=== PATIENT | female | born 1940 | race Asian ===

== ENCOUNTER 2016-11-05 14:04 | Inpatient (IN) | payer OTHER ==
[~2016-11-05] VITALS: Ht 154.9 cm; Wt 45.5 kg
[2016-11-05 16:57] VITALS: BP 160/72; RESP 18
[2016-11-05 17:00] VITALS: Ht 154.9 cm; Wt 45.5 kg
[2016-11-05] MEDS ORDERED: NITROGLYCERIN (SL) 0.4 MG TAB SL PRN (18:00)
[2016-11-05] MEDS ORDERED: DOCUSATE SODIUM 100 MG CAP PO PRN (18:00)
[2016-11-05] MEDS ORDERED: ACETAMINOPHEN 325 MG TAB PO PRN (18:00)
[2016-11-05] MEDS ORDERED: NACL 0.9% 3 ML SYG IV SCH (18:00)
[2016-11-05] MEDS ORDERED: HYDROCODONE/APAP (5/325) TAB PO PRN (18:00)
[2016-11-05] MEDS ORDERED: LORAZEPAM 2 MG INJ IV PRN (18:00)
[2016-11-05] MEDS ORDERED: morphine 2 MG INJ IV PRN (18:00)
[2016-11-05] MEDS ORDERED: hydrALAzine 20 MG INJ IV PRN (18:00)
[2016-11-05] MEDS ORDERED: MAGNESIUM HYDROXIDE 30ML CUP PO PRN (18:00)
[2016-11-05] MEDS ORDERED: NA PHOSPHATE/BIPHOS 133 ML ENEMA PR PRN (18:00)
[2016-11-05] MEDS ORDERED: ONDANSETRON 4 MG INJ IV PRN (18:00)
[2016-11-05] MEDS ORDERED: AMLO2.5T78 PO (18:02)
[2016-11-05] MEDS ORDERED: METF1000 PO (18:02)
[2016-11-05] MEDS ORDERED: HYDR12.58 PO (18:03)
[2016-11-05] MEDS ORDERED: ALBUTEROL/IPRATROPIUM (NEB) 3 ML AMP HHN STA (18:08)
[2016-11-05] MEDS ORDERED: GLUCOSE GEL 15 GRAM TUBE PO PRN ×2 (18:30)
[2016-11-05] MEDS ORDERED: GLUCAGON 1 MG INJ IM PRN (18:30)
[2016-11-05] MEDS ORDERED: DEXTROSE 50% 50 ML SYRINGE IV PRN ×2 (18:30)
[2016-11-05] MEDS ORDERED: GLUCOSE GEL 15 GRAM TUBE BUCCAL PRN (18:30)
[2016-11-05 19:29] VITALS: BP 149/65; RESP 20
--- NOTE | 2016-11-05 20:00 | HP ---
DATE OF ADMISSION: 11/05/2016 CHIEF COMPLAINT: Shortness of breath. HISTORY OF PRESENT ILLNESS: This 76-year-old female with past medical history of essential hyperten dorys, type 2 diabetes, who presented to outside hospital today with complaint of sore throat and con gestion. She has been having these symptoms for the last 3 to 4 days. She also had fever. When nadeen took her temperature at home 2 days ago, she was upper 100 degrees. No upper or lower GI bleeding , no headaches or dizziness or loss of consciousness. No diarrhea or constipation, no arthralgias o r myalgias. When she presented to the outside hospital, she had signs of upper respiratory infectio n, and lactic acid was slightly elevated as well. She was diagnosed with sepsis but transferred [facility] here due to insurance purposes. PAST MEDICAL HISTORY: As stated above. ALLERGIES: NO KNOWN DRUG ALLERGIES. MEDICATIONS AT HOME: Include: She takes metformin at home. She takes amlodipine at home. She bridget es hydrochlorothiazide at home. PAST SURGICAL HISTORY: None. SOCIAL HISTORY: Former smoker, quit many, many years ago. FAMILY HISTORY: Noncontributory. PHYSICAL EXAMINATION: VITAL SIGNS: T-max 98.5, pulse 77, respirations 18, blood pressure 160/72, saturating at greater th an 92% on room air. GENERAL: The patient is lying in bed, answering questions appropriately. No acute distress. HEENT: Pupils equal, round, react to light. Extraocular muscles intact. NECK: Supple, no thyromegaly. LUNGS: Slightly distant breath sounds bilaterally. CARDIOVASCULAR: S1, S2 heard. No rubs or gallops. ABDOMEN: Soft, nontender, nondistended. Normal bowel sounds. No rebound or guarding. MUSCULOSKELETAL: No lower extremity bilaterally. NEUROLOGIC: No focal deficits. LABS: Labs were done at the outside hospital. WBC 7.2, hemoglobin 12.8, hematocrit 36.5, platelets 219. Sodium 134, potassium 3.0, chloride 93, CO2 28, BUN 9, creatinine 0.95, glucose of 167. UA w as positive leukocyte esterase and she had UTI. Since her UA was positive, I put her on Levaquin. The glucose was 50. Negative nitrites. The lactic acid over there was 3.2. They did a chest x-ray that just showed atherosclerotic disease of the aorta, otherwise clear lungs. ASSESSMENT AND PLAN: A 76-year-old female coming in with signs of mild sepsis after experiencing so re throat and congestion for the last few days. Source could be secondary to upper respiratory infe ction versus urinary tract infection. 1. Mild sepsis and sore throat. Admit the patient to med/surg floor, put on DuoNeb p.r.n. Check T SH, A1c, lipid panel, IV fluids, trend her lactic acid as well. Broad spectrum antibiotics. Follow up final culture results. Check labs in the morning. 2. Essential hypertension. Continue home calcium channel kierra and hydralazine p.r.n. 3. Type 2 diabetes. Again, check A1c and put her on sliding scale insulin. 4. Gastrointestinal prophylaxis: Proton pump inhibitor. 5. Deep venous thrombosis prophylaxis: Heparin subcutaneous. Also consider PT consult as well. Dictated By: SWAPNIL PUENTE Conf#: [id number] DID#: [id number]
[2016-11-05] MEDS: SOD CHLORIDE 0.45% 1,000 ML IV SCH (20:23)
[2016-11-05] MEDS: LEVOFLOXACIN 750MG/D5W (PMX) 150 ML IVPB SCH (20:33)
[2016-11-05] MEDS: HEPARIN 5,000 UNIT/0.5 ML VIAL SC SCH (21:21)
[2016-11-05] MEDS: INSULIN ASPART [NOVOLOG] 3 ML PEN SC SCH (21:33)
[2016-11-06] MEDS: ACCU-CHEK XX SCH (01:38)
[2016-11-06] MEDS: CEPASTAT LOZENGE MT PRN ×3 (01:58→06:03)
[2016-11-06] MEDS: ALBUTEROL/IPRATROPIUM (NEB) 3 ML AMP HHN PRN ×2 (05:26→22:01)
[2016-11-06] MEDS: PANTOPRAZOLE (EC) 40 MG TAB PO SCH (06:03)
[2016-11-06 06:23] LABS: ADD SCAN DIFF NO
[2016-11-06 06:33] LABS: BASOPHILS % 0.4 % (0.0-2.0); EOSINOPHILS # 0.1 10^3/ul (0.0-0.5); EOSINOPHILS % 1.5 % (0.0-7.0); HEMOGLOBIN 11.6 g/dl (12.0-16.0); LYMPHOCYTES % 52.6 % (15.0-51.0); MEAN CORPUSCULAR HEMOGLOBIN 30.6 pg (29.0-33.0); MEAN CORPUSCULAR HGB CONC 34.1 g/dl (32.0-37.0); MEAN CORPUSCULAR VOLUME 89.7 fl (82.0-101.0); MEAN PLATELET VOLUME 9.1 fl (7.4-10.4); MONOCYTE # 0.7 10^3/ul (0.3-0.9); MONOCYTES % 8.6 % (0.0-11.0); NEUTROPHIL # 2.8 10^3/ul (1.6-7.5); NEUTROPHILS % 36.6 % (39.0-77.0); PLATELET COUNT 194 10^3/UL (140-415); RED BLOOD COUNT 3.79 10^6/ul (4.20-5.40); RED CELL DISTRIBUTION WIDTH 11.8 % (11.5-14.5); WHITE BLOOD COUNT 7.5 10^3/ul (4.8-10.8)
[2016-11-06 06:59] LABS: CALCIUM 9.4 mg/dl (8.4-10.2); CHOL/HDL RATIO 2.6 RATIO; CREATININE 0.68 mg/dl (0.44-1.00); MAGNESIUM 1.5 mg/dl (1.7-2.5); PHOSPHORUS 3.3 mg/dl (2.5-4.9); POTASSIUM 3.2 mmol/L (3.5-5.1)
[2016-11-06 07:22] VITALS: BP 151/58; RESP 18
[2016-11-06 07:22] LABS: THYROID STIMULATING HORMONE 2.53 MIU/L (0.465-4.680)
[2016-11-06] MEDS: AMLODIPINE 5 MG TAB PO SCH (08:29)
[2016-11-06] MEDS: INSULIN ASPART [NOVOLOG] 3 ML PEN SC SCH ×4 (08:31→22:26)
[2016-11-06] MEDS: HEPARIN 5,000 UNIT/0.5 ML VIAL SC SCH ×2 (08:33→20:05)
[2016-11-06] MEDS ORDERED: POTASSIUM CHLORIDE (SR) 20 MEQ TAB PO STA (09:13)
--- NOTE | 2016-11-06 09:27 | PN ---
Date/Time of Note Date/Time of Note DATE: 11/06/16 TIME: 09:19 Assessment/Plan VTE Prophylaxis VTE Prophylaxis Intervention: heparin Lines/Catheters IV [facility] Peripheral IV Assessment/Plan Chief Complaint/Hosp Course ASSESSMENT AND PLAN: 76-year-old female coming in with signs of mild sepsis after experiencing sore throat and congestion for the last few days. Source could be secondary to upper respiratory infection versus urinary tract infection. 1. Mild sepsis and sore throat - slowly improving - continue DuoNeb p.r.n., IV fluids, trend her lactic acid as well. - Broad spectrum antibiotics. - Follow up final culture results. 2. Essential hypertension. Continue home calcium channel kierra and hydralazine p.r.n. 3. Type 2 diabetes- sliding scale insulin. 4. Gastrointestinal prophylaxis: Proton pump inhibitor. 5. Deep venous thrombosis prophylaxis: Heparin subcutaneous. F/u PT consult as well. Problems: Subjective 24 Hr Interval Summary Free Text/Dictation No acute events overnight. Exam/Review of Systems Vital Signs Vitals Vital Signs Date Time Temp Pulse Resp B/P Pulse Ox O2 Delivery O2 Flow Rate FiO2 11/06/16 07:22 99.2 89 18 151/58 100 11/06/16 05:26 21 Intake and Output 11/05/16 11/05/16 11/06/16 15:00 23:00 07:00 Intake Total 150 ml 700 ml Balance 150 ml 700 ml Exam GENERAL: The patient is lying in bed, answering questions appropriately. No acute distress. HEENT: Pupils equal, round, react to light. Extraocular muscles intact. NECK: Supple, no thyromegaly. LUNGS: Slightly distant breath sounds bilaterally. CARDIOVASCULAR: S1, S2 heard. No rubs or gallops. ABDOMEN: Soft, nontender, nondistended. Normal bowel sounds. No rebound or guarding. MUSCULOSKELETAL: No lower extremity bilaterally. NEUROLOGIC: No focal deficits. Results Result Diagram: 11/06/16 0555 11/06/16 0555 Results 24 hrs Laboratory Tests Test 11/05/16 17:08 11/05/16 18:55 11/05/16 21:17 11/06/16 00:30 Bedside Glucose 167 271 H Free Thyroxine 1.21 Lactic Acid Level 1.6 Test 11/06/16 01:37 11/06/16 05:55 11/06/16 08:05 Bedside Glucose 263 H 208 White Blood Count 7.5 Red Blood Count 3.79 L Hemoglobin 11.6 L Hematocrit 34.0 L Mean Corpuscular Volume 89.7 Mean Corpuscular Hemoglobin 30.6 Mean Corpuscular Hemoglobin Concent 34.1 Red Cell Distribution Width 11.8 Platelet Count 194 Mean Platelet Volume 9.1 Neutrophils % 36.6 L Lymphocytes % 52.6 H Monocytes % 8.6 Eosinophils % 1.5 Basophils % 0.4 Nucleated Red Blood Cells % 0.0 Neutrophils # 2.8 Lymphocytes # 4.0 H Monocytes # 0.7 Eosinophils # 0.1 Basophils # 0.0 Nucleated Red Blood Cells # 0.0 Sodium Level 137 Potassium Level 3.2 L Chloride Level 100 Carbon Dioxide Level 27 Anion Gap 13 Blood Urea Nitrogen 12 Creatinine 0.68 Glucose Level 188 Lactic Acid Level 2.9 H Calcium Level 9.4 Phosphorus Level 3.3 Magnesium Level 1.5 L Triglycerides Level 172 H Cholesterol Level 175 LDL Cholesterol, Calculated 76 HDL Cholesterol 65 Cholesterol/HDL Ratio 2.6 Thyroid Stimulating Hormone (TSH) 2.530 Medications Medications Current Medications Ondansetron HCl (Zofran Inj) 4 mg Q6H PRN IV NAUSEA AND/OR VOMITING; Start 05/14 at 18:00 Acetaminophen (Tylenol Tab) 650 mg Q6H PRN PO PAIN LEVEL 1-3 OR FEVER Last administered on 11/06/16 01:50; Admin Dose 650 MG; Start 11/05/16 at 18:00 Acetaminophen/ Hydrocodone Bitart ([place] (5/325)) 1 tab Q6H PRN PO MODERATE PAIN LEVEL 4-6; Start 11/05/16 at 18:00 Morphine Sulfate (morphine) 2 mg Q4H PRN IV SEVERE PAIN LEVEL 7-10; Start 11/05 at 18:00 Docusate Sodium (Colace) 100 mg Q12H PRN PO CONSTIPATION; Start 11/05/16 at 18: 00 Magnesium Hydroxide (Milk Of Mag) 30 ml DAILY PRN PO CONSTIPATION; Start at 18:00 Sodium Biphosphate/ Sodium Phosphate (Fleet Enema) 133 ml DAILY PRN [place] CONSTIPATION; Start 11/05/16 at 18:00 Pantoprazole (Protonix Tab) 40 mg DAILY@06 PO Last administered on 11/06/16 06 :03; Admin Dose 40 MG; Start 11/06/16 at 06:00 Heparin Sodium (Porcine) 5000 unit 5,000 unit Q12 SC Last administered on 08:33; Admin Dose 5,000 UNIT; Start 11/05/16 at 21:00 Sodium Chloride (1/2 NS) 1,000 ml @ 75 mls/hr [id number] IV Last administered on 11/05/16 20:23; Admin Dose 75 MLS/HR; Start 11/05/16 at 20:00 Lorazepam 0.5 mg 0.5 mg Q6H PRN IV ANXIETY; Start 11/05/16 at 18:00 Levofloxacin/ Dextrose (Levaquin 750 Mg/ D5W 150 ml (Pmx)) 150 ml @ 100 mls/hr Q24H IVPB Last administered on 11/05/16 20:33; Admin Dose 100 MLS/HR; Start at 20:00 Hydralazine HCl (Apresoline) 10 mg Q6H PRN IV ELEVATED BLOOD PRESSURE; Start at 18:00 Clonidine (Catapres) 0.1 mg Q6H PRN PO ELEVATED BLOOD PRESSURE; Start 11/05/16 at 18:00 Nitroglycerin (Nitroglycerin (Sl Tab) 0.4 Mg) 1 tab Q5M PRN SL ANGINA; Start at 18:00 Diagnostic Test (Pha) (Accu-Chek) 1 ea 02 XX ; Start 11/06/16 at 02:00 Amlodipine Besylate (Norvasc) 5 mg DAILY PO Last administered on 11/06/16 08: 29; Admin Dose 5 MG; Start 11/06/16 at 09:00 Phenol (Cepastat Lozenge) 1 lozenge Q1H PRN MT cough Last administered on 06:03; Admin Dose 1 LOZENGE; Start 11/05/16 at 18:30 Miscellaneous Information 1 ea NOTE XX ; Start 11/05/16 at 18:30 Glucose (Glutose) 15 gm Q15M PRN PO DECREASED GLUCOSE; Start 11/05/16 at 18:30 Glucose (Glutose) 22.5 gm Q15M PRN PO DECREASED GLUCOSE; Start 11/05/16 at 18: 30 Dextrose (D50w Syringe) 25 ml Q15M PRN IV DECREASED GLUCOSE; Start 11/05/16 at 18:30 Dextrose (D50w Syringe) 50 ml Q15M PRN IV DECREASED GLUCOSE; Start 11/05/16 at 18:30 Glucagon (Glucagen) 1 mg Q15M PRN IM DECREASED GLUCOSE; Start 11/05/16 at 18:30 Glucose 15 gm 15 gm Q15M PRN BUCCAL DECREASED GLUCOSE; Start 11/05/16 at 18:30 Magnesium Sulfate/ Dextrose (Magnesium Sulfate 1 Gm/D5W) 100 ml @ 100 mls/hr ONCE ONCE IVPB ; Start 11/06/16 at 10:00; Stop 11/06/16 at 10:59 SWAPNIL PONCE November 06, 2016 09:27
[2016-11-06] MEDS ORDERED: MAGNESIUM SULFATE 1 GM/D5W 100 ML IVPB ONE (10:00)
[2016-11-06] MEDS: SOD CHLORIDE 0.45% 1,000 ML IV SCH ×2 (11:19→22:40)
--- NOTE | 2016-11-06 14:56 | RADRPT ---
Echocardiogram Report Patient Name: OSMAR LOTT Gender: Female Date: 1940 Study Date: 06-Nov-2016 Health Care Legal [facility] Ref. Physician: SWAPNIL PONCE Quality: Adequate Procedures: Transthoracic echocardiogram with complete 2D, M-Mode, and doppler examination. Indications: Chest Pain. 2D/M Mode Doppler Measurement Value Normal Ranges Measurement Value Normal Ranges LVIDd 2D 3.1 3.5 - 5.6 cm GABRIEL Vmax 2.0 cm2 LVIDs 2D 1.8 2.1 - 4.1 cm AV Peak Kaleb 1.4 m/sec FS 2D 43.2 % AV Peak PG 7.0 mmHg LVPWd 2D 0.8 0.6 - 1.1 cm LVOT Peak Kaleb 0.9 m/sec IVSd 2D 0.8 0.6 - 1.1 cm LVOT Peak PG 4.0 mmHg IVS/LVPW 2D 1.0 MV E Peak Kaleb 0.8 m/sec AoR Diam 2D 2.6 2.0 - 3.7 cm MV A Peak Kaleb 1.1 m/sec LA/Ao 2D 1 0 - 1 MV E/A 0.7 EDV 2D 29.8 cm3 MV Decel Time 211 msec ESV 2D 5.4 cm3 MV E/A 0.7 LA Dimen 2D 2.6 2.3 - 4.0 cm TR Peak Kaleb 2.7 m/sec LVOT Diam 1.9 cm TR Peak PG 29.0 mmHg LVOT Area 2.8 cm2 RVSP 32.0 mmHg Findings Left Ventricle: Normal left ventricular systolic function. Normal left ventricular cavity size. Normal left ventricular wall thickness. Ejection fraction is visually estimated at 6065 %. Tissue Doppler/Mitral Doppler indices are consistent with impaired relaxation (Stage I diastolic dysfunction). Right Ventricle: Normal right ventricular size. Normal right ventricular systolic function. Left Atrium: The left atrium is normal in size. Right Atrium: The right atrium is normal in size. Mitral Valve: Mild mitral leaflet calcification. Mild mitral annular calcification. Mild mitral valve regurgitation. Aortic Valve: Normal appearance of the aortic valve. No significant aortic stenosis or insufficiency. Tricuspid Valve: Normal appearance of the tricuspid valve. Estimated peak PA systolic pressure 32 mmHg. There is mild tricuspid regurgitation. Pulmonic Valve: Pulmonic valve not well visualized. Pericardium: Normal pericardium with no significant pericardial effusion. Aorta: Normal aortic root. IVC: Normal size and normal respiratory collapse consistent with normal right atrial pressure. Conclusions 1.The left ventricle is normal in size and systolic function. 2.Estimated left ventricular ejection fraction of 60-65%. 3.Grade I diastolic dysfunction. Electronically Signed By: Mahamed Pimentel 06-Nov-2016 14:56:33 -0700 Patient Name: OSMAR LOTT Study Date: 06-Nov-2016 [id number]
[2016-11-06] MEDS: LEVOFLOXACIN 750MG/D5W (PMX) 150 ML IVPB SCH (19:52)
[2016-11-06 20:00] VITALS: BP 135/63; RESP 20
[2016-11-06] MEDS ORDERED: ZOLPIDEM 5 MG TAB PO PRN (22:00)
[2016-11-07] MEDS: ACCU-CHEK XX SCH (02:00)
[2016-11-07] MEDS: SOD CHLORIDE 0.45% 1,000 ML IV SCH (03:06)
[2016-11-07] MEDS: PANTOPRAZOLE (EC) 40 MG TAB PO SCH (06:15)
[2016-11-07 06:42] LABS: ADD SCAN DIFF NO
[2016-11-07 06:52] LABS: BASOPHILS % 0.3 % (0.0-2.0); HEMATOCRIT 30.3 % (37.0-47.0); HEMOGLOBIN 10.8 g/dl (12.0-16.0); LYMPHOCYTES # 1.8 10^3/ul (0.8-2.9); LYMPHOCYTES % 45.7 % (15.0-51.0); MEAN CORPUSCULAR HEMOGLOBIN 31.4 pg (29.0-33.0); MEAN CORPUSCULAR HGB CONC 35.6 g/dl (32.0-37.0); MEAN CORPUSCULAR VOLUME 88.1 fl (82.0-101.0); MEAN PLATELET VOLUME 9.2 fl (7.4-10.4); MONOCYTE # 0.4 10^3/ul (0.3-0.9); NEUTROPHIL # 1.7 10^3/ul (1.6-7.5); NEUTROPHILS % 43.5 % (39.0-77.0); PLATELET COUNT 177 10^3/UL (140-415); RED BLOOD COUNT 3.44 10^6/ul (4.20-5.40); RED CELL DISTRIBUTION WIDTH 11.7 % (11.5-14.5); WHITE BLOOD COUNT 3.9 10^3/ul (4.8-10.8)
[2016-11-07 07:07] LABS: POTASSIUM 3.9 mmol/L (3.5-5.1)
[2016-11-07 07:10] LABS: CREATININE 0.67 mg/dl (0.44-1.00)
[2016-11-07 07:11] LABS: CALCIUM 9.1 mg/dl (8.4-10.2)
[2016-11-07 07:51] VITALS: BP 161/74; RESP 20
[2016-11-07] MEDS: INSULIN ASPART [NOVOLOG] 3 ML PEN SC SCH ×3 (08:31→17:19)
[2016-11-07] MEDS: AMLODIPINE 5 MG TAB PO SCH (08:36)
[2016-11-07] MEDS: HEPARIN 5,000 UNIT/0.5 ML VIAL SC SCH (09:05)
--- NOTE | 2016-11-07 12:10 | PDOCDIS ---
Discharge Instructions CONDITION Patient Condition: Stable HOME CARE INSTRUCTIONS: Diet Instructions: Low Fat /Cholesterol ACTIVITY: Activity Restrictions: Slowly Increase Activity FOLLOW UP/APPOINTMENTS Appointments Plkease take your medications as prescribed, see your doctor in the clinic in 1 week. SWAPNIL PONCE November 07, 2016 12:10
[2016-11-07] MEDS ORDERED: LEVO750T25 PO (12:11)
--- NOTE | 2016-11-07 12:41 | DS ---
DATE OF ADMISSION: 11/05/2016 DATE OF DISCHARGE: 11/07/2016 A 76-year-old female originally admitted on 11/05/2016, being discharged home on 11/07/2016. HOSPITAL COURSE: The patient came in in transfer from an outside hospital with shortness of breath and she was found with mild sepsis and a sore throat, thought to be secondary to upper respiratory i nfection and also a UTI. She was admitted. She was placed on antibiotic care. Over the course of h er hospital stay her symptoms improved. She was able to ambulate and tolerate a p.o. diet. Her A1c was found to be 7.5. She was given sliding scale insulin. Because she is clinically improved toda y she will be discharged home in improved condition on: 1. Levaquin 750 mg daily for 7 more days. 2. Amlodipine 5 mg daily. 3. Hydrochlorothiazide 5 mg daily. 4. Metformin 1000 mg b.i.d. She needs to follow up with her primary care doctor in the clinic in the next 1 to 2 weeks. FINAL DIAGNOSES: 1. Mild sepsis secondary to upper respiratory infection and urinary tract infection, now improved. 2. Hypertension. 3. Type 2 diabetes 4. Mild urinary tract infection. Time spent discharging the patient was 40 minutes. Dictated By: SWAPNIL PUENTE Conf#: [id number] DID#: [id number]
== END 2016-11-07 17:00 | disposition home or self-care (01) | DRG 872 ==
LOC: MS2 16:19 → UNDOADMIN 16:19
PROVIDERS: ADMIT Hospitalist; ATTEND Hospitalist
DX: A41.9 Sepsis, unspecified organism (principal); E11.9 Type 2 diabetes mellitus without complications; N39.0 Urinary tract infection, site not specified; I10 Essential (primary) hypertension; J06.9 Acute upper respiratory infection, unspecified
CPT/HCPCS: 80048; 80061; 82962; 83036; 83605; 83735; 84100; 84439; 84443; 85025; 93306; 94664; J1644; J1815; J1956; J3475